=== PATIENT | female | born 1985 | race Caucasian/White ===

== ENCOUNTER 2019-03-01 18:59 | Emergency (ER) | payer OTHER ==
[~2019-03-01] VITALS: Ht 152.4 cm; Wt 56.7 kg
[~2019-03-01 18:59] MED LIST: LEVOTHYROXIN0.088 MG PO
[2019-03-01] MEDS ORDERED: SYNTHROID125 MC1 PO (19:30)
[2019-03-01] MEDS ORDERED: PRENATA CHEWAB1 EACH PO (19:31)
[2019-03-01] MEDS ORDERED: [UNRECOGNIZED DRUG - OTHER] (19:31)
[2019-03-01 19:33] LABS: URINE BILIRUBIN NEGATIVE (Negative); URINE BLOOD NEGATIVE (Negative); URINE CLARITY CLEAR; URINE COLOR YELLOW; URINE GLUCOSE-RANDOM NEGATIVE (Negative); URINE KETONES 1+ (Negative); URINE LEUKOCYTES-REFLEX 1+ (Negative); URINE NITRITE-REFLEX NEGATIVE (Negative); URINE PROTEIN NEGATIVE (Negative); URINE UROBILINOGEN 0.2 E.U./dl (0.2-1.0)
[2019-03-01 19:38] LABS: CASTS None Seen /LPF (None Seen); CRYSTALS None Seen /LPF (None Seen); MUCUS 0-3 Light strn/LPF (None Seen); SQUAMOUS >10 Many /LPF (0-3); URINE WBC-REFLEX 0-5 Rare /HPF (0-5)
[2019-03-01 19:39] LABS: URINE RBC None Seen /HPF (0-2)
[2019-03-01 19:57] LABS: ABSOLUTE BASOPHILS 0.1 thou/uL (0.0-0.2); ABSOLUTE EOSINOPHILS 0.1 thou/uL (0.0-0.7); ABSOLUTE LYMPHOCYTES 2.2 thou/uL (0.8-5.3); ABSOLUTE MONOCYTES 0.6 thou/uL (0.0-1.2); BASOPHILS 0.7 %; EOSINOPHILS 1.1 %; HEMATOCRIT 39.3 % (37.0-47.0); HEMOGLOBIN 13.1 gm/dL (12.0-15.0); LYMPHOCYTES 17.2 %; MCH 31.1 pg (26.0-34.0); MCHC 33.4 g/dL (28.0-37.0); MCV 93.3 fL (80.0-100.0); MONOCYTES 4.4 %; MPV 7.3 fl. (7.2-11.1); NUCLEATED RBCS 0 /100WBC; PLATELET COUNT* 436 thou/uL (150-400); POLYS 76.6 %; RBC 4.21 mil/uL (4.20-5.00); RDW-CV 13.8 % (10.5-14.5)
[2019-03-01 20:07] LABS: CALCIUM 9.8 mg/dL (8.5-10.1); CREATININE 0.7 mg/dL (0.6-1.3); POTASSIUM 3.5 mmol/L (3.5-5.1)
[2019-03-01 20:11] LABS: ALBUMIN 3.8 g/dL (3.4-5.0); TOTAL BILIRUBIN 0.3 mg/dL (<0.1-1.0); TOTAL PROTEIN 7.5 g/dL (6.4-8.2)
[2019-03-01] MEDS ORDERED: PEPCID20 MG PO (20:56)
[2019-03-01] MEDS ORDERED: ZOFRAN ODT4 MG PO (20:56)
[2019-03-01] MEDS ORDERED: CARAFATE 1 GM TA1 GM PO (20:56)
[2019-03-01] MEDS ORDERED: BACTRIM DS TAB1 EACH PO (20:57)
[2019-03-01] MEDS ORDERED: KEFLEX500 M1 PO (21:04)
[2019-03-01 21:09] VITALS: BP 107/81
== END 2019-03-01 21:10 | disposition home or self-care (01) ==
LOC: M.ERS 18:59
PROVIDERS: Emergency Medicine
DX: N39.0 Urinary tract infection, site not specified (principal); R11.2 Nausea with vomiting, unspecified; E03.9 Hypothyroidism, unspecified; Z88.1 Allergy status to other antibiotic agents